=== PATIENT | female | born 1935 | race Caucasian/White ===

== ENCOUNTER 2020-07-16 16:37 | Inpatient (IN) | payer MEDICAID ==
[~2020-07-16] VITALS: Ht 160 cm; Wt 60.9 kg
[2020-07-16 18:08] LABS: BASOPHILS % 0.7 % (0.0-2.0); EOSINOPHILS % 2.4 % (0.0-5.0); HEMATOCRIT. 38.3 % (36.0-48.0); HEMOGLOBIN. 12.5 g/dL (12.0-16.0); MEAN CORPUSCULAR HEMOGLOBIN 29.8 pg (28.0-32.0); MEAN CORPUSCULAR VOLUME 91.3 fL (81.0-99.0); MEAN PLATELET VOLUME 8.4 fl (7.4-10.4); MONOCYTES % 8.5 % (2.0-8.0); NEUTROPHILS % 56.4 % (40.0-76.0); PLATELET 444 x1000/uL (130-400)
[2020-07-16 18:22] LABS: INR 1.1; PROTHROMBIN TIME 11.6 sec (9.6-11.0)
[2020-07-16 18:45] LABS: CHLORIDE 98 mEq/L (98-107)
[2020-07-16] MEDS ORDERED: CEFTRIAXONE 1 G PREMIX 50 ML IV ONE (18:45)
[2020-07-16] MEDS ORDERED: NITROGLYCERIN 0.4MG TABLET SL SL PRN (19:15)
[2020-07-16] MEDS ORDERED: KETOROLAC 15MG/ML VIAL IV PRN (19:15)
[2020-07-16] MEDS ORDERED: ACETAMINOPHEN 325MG TABLET PO PRN ×2 (19:30)
[2020-07-16] MEDS ORDERED: GUAIFENESIN 200MG/10ML SUGAR FREE UDC PO PRN (19:30)
[2020-07-16] MEDS ORDERED: DOCUSATE SODIUM 100MG CAPSULE PO PRN (19:30)
[2020-07-16] MEDS ORDERED: ONDANSETRON HCL 4MG/2ML INJ IV PRN (19:30)
[2020-07-16] MEDS ORDERED: MAGNESIUM/ALUMINUM HYDROXIDE/SIMETHICONE 30ML UDC PO PRN (19:30)
[2020-07-16] MEDS ORDERED: DEXTROSE 50% WATER 50ML SYRINGE IV PRN (19:30)
[2020-07-16] MEDS ORDERED: CLONIDINE 0.1MG TABLET PO PRN (19:30)
[2020-07-16] MEDS ORDERED: IBUPROFEN 600MG TABLET PO ONE (20:15)
[2020-07-16] MEDS ORDERED: AZITHROMYCIN 500 MG in DEXT 5% WATER 250 ML IV SCH (21:00)
[2020-07-16] MEDS ORDERED: ENOXAPARIN 40MG/0.4ML SYR SUBCUT SCH (21:00)
[2020-07-16] MEDS ORDERED: ZOLPIDEM TARTRATE 5MG TABLET PO PRN (21:00)
[2020-07-16 21:21] LABS: FOLIC ACID (FOLATE) SERUM >20 ng/mL ng/mL (>5.38)
[2020-07-16 21:32] LABS: VITAMIN B12 SERUM 1393 pg/mL (211-911)
[2020-07-17] VITALS (12 sets, daily range): BP systolic 119–152; BP diastolic 53–75
[2020-07-17 00:01] LABS: CREATINE KINASE MB FRACTION 3.5 ng/mL (0.5-3.6)
[2020-07-17] MEDS: BLOOD SUGAR DIAGNOSTIC STRIP TEST SCH ×4 (05:53→21:23)
[2020-07-17 07:55] LABS: CHLORIDE 99 mEq/L (98-107)
[2020-07-17 07:56] LABS: BASOPHILS % 0.9 % (0.0-2.0); HEMOGLOBIN. 10.7 g/dL (12.0-16.0); LYMPHOCYTES % 24.5 % (20.0-50.0); MEAN CORPUSCULAR HEMOGLOBIN 29.1 pg (28.0-32.0); MEAN CORPUSCULAR VOLUME 89.4 fL (81.0-99.0); MEAN PLATELET VOLUME 8.3 fl (7.4-10.4); NEUTROPHILS % 59.6 % (40.0-76.0); PLATELET 398 x1000/uL (130-400); RED BLOOD CELL COUNT 3.69 mill/uL (4.2-5.4); RED CELL DISTRIBUTION WIDTH 15.5 % (11.6-14.6)
[2020-07-17 08:09] LABS: PHOSPHORUS 2.5 mg/dL (2.5-4.9)
[2020-07-17 08:11] LABS: CREATINE KINASE 36 IU/L (26-192)
[2020-07-17] MEDS ORDERED: CEFTRIAXONE 1 G PREMIX 50 ML IV SCH ×2 (09:00→18:00)
[2020-07-17] MEDS: CHOLECALCIFEROL (D3) 1000 UNIT TABLET PO SCH (09:13)
[2020-07-17] MEDS: ZINC SULFATE 220 MG ( 50 ) CAPSULE PO SCH (09:13)
[2020-07-17] MEDS: ASCORBIC ACID 500 MG TABLET PO SCH ×3 (09:13→21:20)
[2020-07-17] MEDS: ASPIRIN 325MG EC TABLET PO SCH (09:13)
[2020-07-17] MEDS: INSULIN LISPRO 100 UNITS/ML SUBCUT SCH ×5 (09:15→21:27)
[2020-07-17] MEDS: ENOXAPARIN 40MG/0.4ML SYR SUBCUT SCH (15:51)
[2020-07-17] MEDS ORDERED: IPRATROPIUM/ALBUTEROL 0.5-3(2.5)MG/3ML NEB HHN PRN (16:30)
[2020-07-17] MEDS ORDERED: MAGNESIUM 4 G PREMIX 100 ML IV NR (17:30)
[2020-07-17] MEDS ORDERED: POTASSIUM CHLORIDE INJ 40 MEQ in DEXT 5% WATER 250 ML IV NR (18:00)
[2020-07-17] MEDS: FAMOTIDINE 20MG TABLET PO SCH (21:20)
[2020-07-17] MEDS: INSULIN GLARGINE UD 100 UNITS/ML SYR SUBCUT SCH ×2 (23:03→23:04)
[2020-07-18] VITALS (12 sets, daily range): BP systolic 137–157; BP diastolic 63–77
[2020-07-18] MEDS: CEFTRIAXONE 1,000 MG in DEXTROSE 5% WATER 50 ML IV SCH ×2 (02:25→17:53)
[2020-07-18] MEDS: AZITHROMYCIN 500 MG in DEXT 5% WATER 250 ML IV SCH ×2 (03:09→23:44)
[2020-07-18] MEDS: BLOOD SUGAR DIAGNOSTIC STRIP TEST SCH ×4 (05:57→21:39)
[2020-07-18] MEDS: ASCORBIC ACID 500 MG TABLET PO SCH ×2 (08:44→21:52)
[2020-07-18] MEDS: CHOLECALCIFEROL (D3) 1000 UNIT TABLET PO SCH (08:44)
[2020-07-18] MEDS: ASPIRIN 325MG EC TABLET PO SCH (08:44)
[2020-07-18] MEDS: ZINC SULFATE 220 MG ( 50 ) CAPSULE PO SCH (08:44)
[2020-07-18] MEDS: INSULIN LISPRO 100 UNITS/ML SUBCUT SCH ×4 (08:48→21:49)
[2020-07-18 11:20] LABS: CLARITY URINE CLOUDY (CLEAR); COLOR URINE YELLOW (YELLOW); KETONES URINE TRACE (NEGATIVE); LEUKOCYTE ESTERASE URINE 3+ (NEGATIVE); NITRITE URINE POSITIVE (NEGATIVE); OCCULT BLOOD URINE NEGATIVE (NEGATIVE); PH URINE 6.5 (4.5-8.0); PROTEIN URINE TRACE (NEGATIVE); SPECIFIC GRAVITY URINE 1.013 (1.005-1.030); UROBILINOGEN URINE 0.2 E.U./dL (0.2-1.0)
[2020-07-18 11:23] LABS: BASOPHILS % 0.8 % (0.0-2.0); EOSINOPHILS % 7.2 % (0.0-5.0); HEMATOCRIT. 33.8 % (36.0-48.0); HEMOGLOBIN. 11.2 g/dL (12.0-16.0); LYMPHOCYTES % 25.6 % (20.0-50.0); MEAN CORPUSCULAR HEMOGLOBIN 29.6 pg (28.0-32.0); MEAN CORPUSCULAR VOLUME 89.2 fL (81.0-99.0); MEAN PLATELET VOLUME 8.1 fl (7.4-10.4); MONOCYTES % 7.6 % (2.0-8.0); NEUTROPHILS % 58.8 % (40.0-76.0); PLATELET 433 x1000/uL (130-400); RED BLOOD CELL COUNT 3.79 mill/uL (4.2-5.4); RED CELL DISTRIBUTION WIDTH 15.8 % (11.6-14.6)
[2020-07-18 11:34] LABS: CHLORIDE 98 mEq/L (98-107)
[2020-07-18 11:53] LABS: *BARBITURATES SCREEN URINE NEGATIVE (NEGATIVE)
[2020-07-18 11:54] LABS: *AMPHETAMINES SCREEN URINE NEGATIVE (NEGATIVE); *BENZODIAZEPINES SCREEN URINE NEGATIVE (NEGATIVE); CANNABINOID URINE SCREEN NEGATIVE (NEGATIVE); OPIATES URINE SCREEN NEGATIVE (NEGATIVE)
[2020-07-18 11:57] LABS: PHENCYCLIDINE URINE SCREEN NEGATIVE (NEGATIVE)
[2020-07-18 12:00] LABS: METHADONE URINE SCREEN NEGATIVE (NEGATIVE)
[2020-07-18 12:01] LABS: *COCAINE SCREEN URINE NEGATIVE (NEGATIVE)
[2020-07-18] MEDS ORDERED: METO25TA6 PO (12:29)
[2020-07-18] MEDS ORDERED: CLOP-31 PO (12:29)
[2020-07-18] MEDS ORDERED: INSU100I24 SQ (12:29)
[2020-07-18] MEDS ORDERED: OMEP40CA12 PO (12:29)
[2020-07-18] MEDS ORDERED: GABA-290 PO (12:29)
[2020-07-18] MEDS ORDERED: METF-416 PO ×2 (12:29)
[2020-07-18] MEDS ORDERED: ATOR20TA65 PO (12:29)
[2020-07-18] MEDS ORDERED: HYDR100T26 PO (12:29)
[2020-07-18] MEDS ORDERED: ASPI-867 PO (12:29)
[2020-07-18] MEDS ORDERED: MECL-159 PO (12:29)
[2020-07-18] MEDS ORDERED: ERGO500013 PO (12:38)
[2020-07-18] MEDS ORDERED: FERR325T22 PO (12:38)
[2020-07-18] MEDS ORDERED: MULT1TAB63 PO (12:38)
[2020-07-18] MEDS ORDERED: ALPR-340 PO (12:38)
[2020-07-18] MEDS ORDERED: ALEN70TA79 PO (12:38)
[2020-07-18] MEDS ORDERED: LORA10CA PO (12:38)
[2020-07-18] MEDS ORDERED: FUROSEMIDE 20MG/2ML VIAL IVP NR (13:45)
[2020-07-18] MEDS ORDERED: POTASSIUM CHLORIDE 20MEQ TABLET SR PO NR (13:45)
[2020-07-18] MEDS: ENOXAPARIN 40MG/0.4ML SYR SUBCUT SCH (17:08)
[2020-07-18] MEDS ORDERED: KETOROLAC 15MG/ML VIAL IV PRN (20:00)
[2020-07-18] MEDS ORDERED: METOPROLOL TARTRATE 25MG TABLET PO SCH (21:00)
[2020-07-18] MEDS: FAMOTIDINE 20MG TABLET PO SCH (21:49)
[2020-07-18] MEDS: ATORVASTATIN CALCIUM 40MG TABLET PO SCH (21:52)
[2020-07-18] MEDS: INSULIN GLARGINE UD 100 UNITS/ML SYR SUBCUT SCH (23:42)
[2020-07-19] VITALS (12 sets, daily range): BP systolic 112–167; BP diastolic 53–74
[2020-07-19] MEDS: BLOOD SUGAR DIAGNOSTIC STRIP TEST SCH ×4 (06:56→21:16)
[2020-07-19] MEDS: INSULIN LISPRO 100 UNITS/ML SUBCUT SCH ×4 (07:20→21:34)
[2020-07-19] MEDS: ASCORBIC ACID 500 MG TABLET PO SCH ×2 (09:47→21:26)
[2020-07-19] MEDS: ASPIRIN 325MG EC TABLET PO SCH (09:47)
[2020-07-19] MEDS: CHOLECALCIFEROL (D3) 1000 UNIT TABLET PO SCH (09:47)
[2020-07-19] MEDS: CLOPIDOGREL 75MG TABLET PO SCH (09:47)
[2020-07-19] MEDS: ZINC SULFATE 220 MG ( 50 ) CAPSULE PO SCH (09:47)
[2020-07-19] MEDS: MEROPENEM 1,000 MG in SODIUM CHLORIDE 0.9% 100 ML IV SCH ×2 (13:03→22:39)
[2020-07-19] MEDS: HYDRALAZINE HCL 50MG TABLET PO SCH ×2 (14:49→22:38)
[2020-07-19] MEDS: ENOXAPARIN 40MG/0.4ML SYR SUBCUT SCH (17:49)
[2020-07-19] MEDS: FAMOTIDINE 20MG TABLET PO SCH (21:26)
[2020-07-19] MEDS: ATORVASTATIN CALCIUM 40MG TABLET PO SCH (21:26)
[2020-07-19] MEDS: METOPROLOL TARTRATE 50MG TABLET PO SCH (21:26)
[2020-07-19] MEDS: INSULIN GLARGINE UD 100 UNITS/ML SYR SUBCUT SCH (21:34)
[2020-07-20] VITALS (17 sets, daily range): BP systolic 101–165; BP diastolic 45–74
[2020-07-20] MEDS: AZITHROMYCIN 500 MG in DEXT 5% WATER 250 ML IV SCH (00:35)
[2020-07-20] MEDS: HYDRALAZINE HCL 50MG TABLET PO SCH ×3 (06:31→22:00)
[2020-07-20] MEDS: BLOOD SUGAR DIAGNOSTIC STRIP TEST SCH ×4 (06:35→21:10)
[2020-07-20] MEDS: INSULIN LISPRO 100 UNITS/ML SUBCUT SCH ×4 (07:01→21:00)
[2020-07-20] MEDS: ZINC SULFATE 220 MG ( 50 ) CAPSULE PO SCH (08:18)
[2020-07-20] MEDS: ASCORBIC ACID 500 MG TABLET PO SCH ×2 (08:18→21:08)
[2020-07-20] MEDS: CLOPIDOGREL 75MG TABLET PO SCH (08:18)
[2020-07-20] MEDS: CHOLECALCIFEROL (D3) 1000 UNIT TABLET PO SCH (08:19)
[2020-07-20] MEDS: ASPIRIN 325MG EC TABLET PO SCH (08:19)
[2020-07-20] MEDS: METOPROLOL TARTRATE 50MG TABLET PO SCH ×2 (08:26→21:07)
[2020-07-20] MEDS: MEROPENEM 1,000 MG in SODIUM CHLORIDE 0.9% 100 ML IV SCH ×2 (10:46→23:54)
[2020-07-20] MEDS: ENOXAPARIN 40MG/0.4ML SYR SUBCUT SCH (16:27)
[2020-07-20] MEDS: ATORVASTATIN CALCIUM 40MG TABLET PO SCH (21:07)
[2020-07-20] MEDS: FAMOTIDINE 20MG TABLET PO SCH (21:08)
[2020-07-20] MEDS: INSULIN GLARGINE UD 100 UNITS/ML SYR SUBCUT SCH (21:15)
[2020-07-21] VITALS (10 sets, daily range): BP systolic 117–160; BP diastolic 47–91
[2020-07-21] MEDS: AZITHROMYCIN 500 MG in DEXT 5% WATER 250 ML IV SCH (01:19)
[2020-07-21] MEDS: BLOOD SUGAR DIAGNOSTIC STRIP TEST SCH ×2 (05:59→11:56)
[2020-07-21] MEDS: HYDRALAZINE HCL 50MG TABLET PO SCH (06:00)
[2020-07-21] MEDS: INSULIN LISPRO 100 UNITS/ML SUBCUT SCH ×2 (07:20→12:18)
[2020-07-21] MEDS: ASCORBIC ACID 500 MG TABLET PO SCH (08:21)
[2020-07-21] MEDS: ZINC SULFATE 220 MG ( 50 ) CAPSULE PO SCH (08:21)
[2020-07-21] MEDS: METOPROLOL TARTRATE 50MG TABLET PO SCH (08:22)
[2020-07-21] MEDS: CHOLECALCIFEROL (D3) 1000 UNIT TABLET PO SCH (08:22)
[2020-07-21] MEDS: CLOPIDOGREL 75MG TABLET PO SCH (08:22)
[2020-07-21] MEDS: ASPIRIN 325MG EC TABLET PO SCH (08:25)
[2020-07-21] MEDS: MEROPENEM 1,000 MG in SODIUM CHLORIDE 0.9% 100 ML IV SCH (11:56)
[2020-07-21] MEDS ORDERED: LOSARTAN POTASSIUM 25 MG TABLET PO SCH (14:00)
== END 2020-07-21 15:33 | disposition home or self-care (01) | DRG 720 ==
LOC: ER 16:37 → 3WST 19:12 → EDBEDREQ 19:16 → EDBEDREQTM 19:16 → EDBEDREQSVC 19:16 → ENRESERV 22:22
PROVIDERS: ADMIT Internal Medicine; ATTEND Internal Medicine
PROC: 4B02XTZ Measurement of Cardiac Defibrillator, External Approach (ICD-10-PCS; principal; 2020-07-16)
DX: A41.50 Gram-negative sepsis, unspecified (principal); J96.01 Acute respiratory failure with hypoxia; E43 Unspecified severe protein-calorie malnutrition; I50.33 Acute on chronic diastolic (congestive) heart failure; J18.9 Pneumonia, unspecified organism; N39.0 Urinary tract infection, site not specified; R65.20 Severe sepsis without septic shock; E87.1 Hypo-osmolality and hyponatremia; F17.200 Nicotine dependence, unspecified, uncomplicated; E87.6 Hypokalemia; E83.42 Hypomagnesemia; I25.10 Atherosclerotic heart disease of native coronary artery without angina pectoris; I42.9 Cardiomyopathy, unspecified; I44.7 Left bundle-branch block, unspecified; I13.0 Hypertensive heart and chronic kidney disease with heart failure and stage 1 through stage 4 chronic kidney disease, or unspecified chronic kidney disease; N18.9 Chronic kidney disease, unspecified; E78.5 Hyperlipidemia, unspecified; E11.22 Type 2 diabetes mellitus with diabetic chronic kidney disease; D72.10 Eosinophilia, unspecified; Z79.4 Long term (current) use of insulin; Z95.1 Presence of aortocoronary bypass graft; Z95.810 Presence of automatic (implantable) cardiac defibrillator; Z79.82 Long term (current) use of aspirin; Z79.899 Other long term (current) drug therapy; Z68.23 Body mass index [BMI] 23.0-23.9, adult; Z87.01 Personal history of pneumonia (recurrent); Z99.81 Dependence on supplemental oxygen; Z86.16 Personal history of COVID-19
CPT/HCPCS: 36415; 71045; 78582; 80053; 80061; 80305; 81003; 82550; 82553; 82607; 82746; 82962; 83036; 83540; 83550; 83605; 83615; 83735; 83880; 84100; 84145; 84484; 85025; 85379; 87077; 87186; 93005; 93306; 93970; 97161; 97166; 99291; A9558; J0456; J0696; J1650; J1815; J2185; J3475; J3480; J7050; J7060

== ENCOUNTER 2022-11-24 13:02 | Emergency (ER) | payer MEDICAID, OTHER ==
[~2022-11-24] VITALS: Ht 167.6 cm; Wt 44.0 kg
[~2022-11-24 13:02] MED LIST: ALEN70TA79 PO; ALPR-340 PO; ASPI-867 PO; ATOR20TA65 PO; CLOP-31 PO; ERGO1250 PO; FERR324T22 PO; GABA-290 PO; HYDR100T26 PO; INSU100I24 SQ; LORA10CA PO; MECL-159 PO; METF-416 PO; METO25TA6 PO; MULT-624 PO; OMEP40CA20 PO
[2022-11-24 13:08] VITALS: O2SAT 96
[2022-11-24] MEDS ORDERED: SODIUM CHLORIDE 0.9% 1,000 ML IV ONE (13:45)
[2022-11-24 14:48] LABS: BASOPHILS % 0.6 % (0.0-2.0); EOSINOPHILS % 6.8 % (0.0-5.0); HEMATOCRIT. 26.6 % (36.0-48.0); LYMPHOCYTES % 28.3 % (20.0-50.0); MEAN CORPUSCULAR HEMOGLOBIN 30.5 pg (28.0-32.0); MEAN CORPUSCULAR VOLUME 90.4 fL (81.0-99.0); MEAN PLATELET VOLUME 8.4 fl (7.4-10.4); MONOCYTES % 9.3 % (2.0-8.0); PLATELET 300 x1000/uL (130-400); RED BLOOD CELL COUNT 2.94 mill/uL (4.2-5.4); RED CELL DISTRIBUTION WIDTH 14.3 % (11.6-14.6)
[2022-11-24 14:55] LABS: CHLORIDE 103 mEq/L (98-107)
[2022-11-24 14:57] LABS: PROTHROMBIN TIME 10.8 sec (9.6-11.0)
[2022-11-24 15:08] LABS: BETA HYDROXYBUTYRATE 0.1 mMol/L (0.0-0.3)
[2022-11-24] MEDS ORDERED: CEFTRIAXONE 1GM PREMIX 50 ML IV ONE (15:45)
[2022-11-24 17:05] LABS: CLARITY URINE CLEAR (CLEAR); COLOR URINE YELLOW (YELLOW); KETONES URINE NEGATIVE (NEGATIVE); LEUKOCYTE ESTERASE URINE 2+ (NEGATIVE); NITRITE URINE NEGATIVE (NEGATIVE); OCCULT BLOOD URINE NEGATIVE (NEGATIVE); PROTEIN URINE NEGATIVE (NEGATIVE); SPECIFIC GRAVITY URINE 1.007 (1.005-1.030); UROBILINOGEN URINE 0.2 E.U./dL (0.2-1.0)
[2022-11-24 19:35] VITALS: BP 136/44; PULSE 74; RESP 16; TEMP 98.1
== END 2022-11-24 20:00 | disposition short-term general hospital (02) ==
LOC: ER 13:40 → CANBEDREQ 19:58 → ER 20:00
DX: E86.0 Dehydration (principal); E42 Marasmic kwashiorkor; E87.20 Acidosis, unspecified; I10 Essential (primary) hypertension; E11.9 Type 2 diabetes mellitus without complications; Z79.899 Other long term (current) drug therapy; Z20.822 Contact with and (suspected) exposure to COVID-19
CPT/HCPCS: 99285; 96365; 70450; 71045; 96361; 87426; 80053; 81003; 82010; 82962; 83605; 83690; 85025; 85610; 86850; 86900; 86901; 87040; 84484; 36415; 82803; J0696; J7030; C9803